=== PATIENT | female | born 2000 | race Caucasian/White ===

== ENCOUNTER 2021-03-09 16:02 | Emergency (ER) | payer OTHER, SELFPAY ==
--- NOTE | ~2021-03-09 | XR_ITS ---
EXAMINATION: XR CHEST CLINICAL INFORMATION: Chest pain COMPARISON: None TECHNIQUE: Frontal view of the chest was obtained. FINDINGS: No significant abnormality is noted involving the heart, lungs, mediastinum, bony thorax or soft tissues. XR/XR chest 1V IMPRESSION: Unremarkable examination.
[2021-03-09 16:11] VITALS: BP 116/58; PULSE 66; RESP 17; TEMP 36.6; O2SAT 99; BMI 25.7
--- NOTE | 2021-03-09 16:18 | ECG_ITS ---
Test Reason : CHEST PAIN Blood Pressure : / mmHG Vent. Rate : 064 BPM Atrial Rate : 064 BPM P-R Int : 160 ms QRS Dur : 086 ms QT Int : 394 ms P-R-T Axes : -06 -15 -21 degrees QTc Int : 406 ms Normal sinus rhythm with sinus arrhythmia Moderate voltage criteria for LVH, may be normal variant Inferior T wave inversions - consider ischemia Abnormal ECG No previous ECGs available Referred By: Generic ED Physician Electronically Signed By:Emmanuel Palma
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
[2021-03-09 18:32] LABS: MANUAL DIFF FLAG NO
[2021-03-09 18:36] LABS: Basophils Percent Auto 0.1 % (0-2); Eosinophils Absolute Auto 0.1 X10*3/uL (0.0-0.4); Eosinophils Percent Auto 1.6 % (0-4); Hematocrit 40.4 % (37-47); Hemoglobin 13.8 g/dl (12.0-16.0); Imm Gran Abs Auto 0.02 X10*3/uL (0.00-0.03); Imm Gran Pct Auto 0.3 % (0.0-0.4); Lymphocytes Absolute Auto 2.5 X10*3/uL (1.2-4.9); Lymphocytes Percent Auto 31.4 % (20-40); Mean Corpuscular HGB Conc 34.2 g/dl (31.0-35.0); Mean Corpuscular Hemoglobin 31.4 pg (27.0-33.0); Mean Corpuscular Volume 91.8 fL (80-98); Mean Platelet Volume 9.7 fL (9.4-12.3); Monocytes Absolute Auto 0.9 X10*3/uL (0.1-1.2); Monocytes Percent Auto 11.1 % (2-11); Neutrophils Absolute Auto 4.4 X10*3/uL (2.0-8.3); Neutrophils Percent Auto 55.5 % (45-73); Platelet Count 266 X10*3/uL (160-400); Red Cell Distribution Width 12.1 % (11.0-16.0); White Blood Count 7.9 X10*3/uL (4.8-10.8)
[2021-03-09 19:00] LABS: Alanine Aminotransferase 11 U/L (0-31); Albumin Level 4.3 g/dL (3.5-5.0); Alkaline Phosphatase 83 U/L (39-117); Anion Gap 11 (12-20); Aspartate Amino Transferase 13 U/L (5-31); Bilirubin Total 0.5 mg/dL (0.0-1.0); Blood Urea Nitrogen 16 mg/dL (9-16); Calcium 9.2 mg/dL (8.4-10.2); Carbon Dioxide 24 mmol/L (22-29); Chloride 110 mmol/L (96-108); Creatinine Clr Calc Pharmacy 115.5; Estimated Glomerular Filt Rate > 60; Glucose Random 73 mg/dL (60-115); Potassium 3.8 mmol/L (3.3-5.1); Sodium 141 mmol/L (135-145); Total Protein 7.6 g/dL (6.5-8.0)
[2021-03-09 19:03] LABS: Troponin-I High Sensitivity < 3.5 ng/L (<3.5-17.0)
[2021-03-09 19:09] VITALS: BP 103/60; PULSE 51; RESP 18; O2SAT 100
== END 2021-03-09 19:48 | disposition home or self-care (01) ==
PROVIDERS: Nurse Practitioner Primary Care; Emergency Provider Internal Medicine
DX: M94.0 Chondrocostal junction syndrome [Tietze] (principal); N64.4 Mastodynia
CPT/HCPCS: 36415; 71045; 80053; 84484; 85025; 93005; 99283; 99284

== ENCOUNTER 2021-03-29 09:08 | Emergency (ER) | payer OTHER, SELFPAY ==
--- NOTE | ~2021-03-29 | XR_ITS ---
EXAMINATION: XR HAND, LEFT XR KNEE, LEFT CLINICAL INFORMATION: Pain following trauma. COMPARISON: None TECHNIQUE: AP, oblique, and lateral views of the left hand. AP, bilateral oblique and lateral views of the left knee. FINDINGS: Left Hand: Oblique, mildly displaced fracture through the 4th metacarpal. Cortical step-off measures up to 0.3 cm. No additional fracture. No dislocation. No joint space narrowing or marginal osteophytes. No osseous erosion. Left Knee: No acute fracture or dislocation. No joint space narrowing or marginal osteophytes. No osseous erosion. No abnormal soft tissue calcification. No significant joint effusion. XR/XR hand LT min 3V IMPRESSION: Left Hand: Oblique, mildly displaced fracture of the 4th metacarpal. Left Knee: Unremarkable examination.
--- NOTE | ~2021-03-29 | XR_ITS ---
EXAMINATION: XR HAND, LEFT XR KNEE, LEFT CLINICAL INFORMATION: Pain following trauma. COMPARISON: None TECHNIQUE: AP, oblique, and lateral views of the left hand. AP, bilateral oblique and lateral views of the left knee. FINDINGS: Left Hand: Oblique, mildly displaced fracture through the 4th metacarpal. Cortical step-off measures up to 0.3 cm. No additional fracture. No dislocation. No joint space narrowing or marginal osteophytes. No osseous erosion. Left Knee: No acute fracture or dislocation. No joint space narrowing or marginal osteophytes. No osseous erosion. No abnormal soft tissue calcification. No significant joint effusion. XR/XR knee LT 4V IMPRESSION: Left Hand: Oblique, mildly displaced fracture of the 4th metacarpal. Left Knee: Unremarkable examination.
[2021-03-29 09:16] VITALS: BP 114/76; BP 134/76; PULSE 88; PULSE 89; RESP 18; TEMP 36.9; O2SAT 100; O2SAT 99; BMI 25.7
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
[2021-03-29] MEDS: Ibuprofen 600 MG TABLET PO (10:14)
== END 2021-03-29 10:52 | disposition home or self-care (01) ==
PROVIDERS: Emergency Provider Emergency Medicine
DX: S62.305A Unspecified fracture of fourth metacarpal bone, left hand, initial encounter for closed fracture (principal); M25.562 Pain in left knee; V89.2XXA Person injured in unspecified motor-vehicle accident, traffic, initial encounter; Y93.9 Activity, unspecified; Y92.410 Unspecified street and highway as the place of occurrence of the external cause; Y99.9 Unspecified external cause status
CPT/HCPCS: 29125; 73130; 73564; 99283; 99284

== ENCOUNTER 2021-04-05 08:03 | Outpatient (REF) | payer OTHER, SELFPAY ==
--- NOTE | ~2021-04-05 | XR_ITS ---
EXAMINATION: XR HAND, LEFT CLINICAL INFORMATION: Left hand pain. COMPARISON: 03/29/2021 TECHNIQUE: 4 views of the left hand. FINDINGS: There is again noted to be an oblique mildly displaced fracture shaft of the left 4th metacarpal with displacement of approximately 3 mm and no significant angulation. Remainder of the left hand appears unremarkable. No periosteal new bone formation is seen and fracture line is still evident. XR/XR hand LT min 3V IMPRESSION: No significant change in appearance of the oblique fracture of the [id number] metacarpal.
== END 2021-04-05 08:04 | disposition home or self-care (01) ==
LOC: HO.HOSX 08:03
PROVIDERS: Visit Provider Physician Assistant
DX: S62.328A Displaced fracture of shaft of other metacarpal bone, initial encounter for closed fracture (principal)
CPT/HCPCS: 29085; 73130; 99202

== ENCOUNTER 2021-04-12 05:30 | Outpatient (REF) | payer OTHER, SELFPAY ==
--- NOTE | ~2021-04-12 | XR_ITS ---
EXAMINATION: XR HAND, LEFT CLINICAL INFORMATION: Pain in hand. COMPARISON: Left hand March 29, 2021, April 05, 2021 TECHNIQUE: 3 views. of the left hand. FINDINGS: There is no oblique slightly displaced fracture through the midshaft of the fourth metacarpal. No substantial change in positioning of the fracture fragments since the prior study of April 05, 2021. Fracture line remains radiolucent. No ossified callus around the fracture. XR/XR hand LT min 3V IMPRESSION: Oblique fracture midshaft of fourth metacarpal. No change in appearance of fracture since prior study April 05, 2021.
== END 2021-04-12 05:31 | disposition home or self-care (01) ==
LOC: HO.HOSX 05:30
PROVIDERS: Visit Provider Physician Assistant
DX: S62.328D Displaced fracture of shaft of other metacarpal bone, subsequent encounter for fracture with routine healing (principal)
CPT/HCPCS: 29085; 73130; 99212

== ENCOUNTER 2021-05-07 12:48 | Emergency (ER) | payer OTHER, SELFPAY ==
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
[2021-05-07 15:10] VITALS: BP 102/42; PULSE 57; RESP 16; TEMP 36.7; O2SAT 99; BMI 24.7
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
[2021-05-07 18:06] VITALS: BP 102/62; PULSE 58; RESP 16; TEMP 36.6; O2SAT 100
--- NOTE | 2021-05-07 20:13 | PC.NURSE ---
PA at bedside discussing results and plan for discharge.
== END 2021-05-07 20:26 | disposition home or self-care (01) ==
PROVIDERS: Emergency Provider Emergency Medicine
DX: S06.0X0A Concussion without loss of consciousness, initial encounter (principal); S16.1XXA Strain of muscle, fascia and tendon at neck level, initial encounter; G44.309 Post-traumatic headache, unspecified, not intractable; V43.52XA Car driver injured in collision with other type car in traffic accident, initial encounter; Y93.9 Activity, unspecified; Y92.410 Unspecified street and highway as the place of occurrence of the external cause; Y99.9 Unspecified external cause status; Z79.899 Other long term (current) drug therapy
CPT/HCPCS: 70450; 72125; 99284

== ENCOUNTER 2021-05-10 06:36 | Outpatient (REF) | payer OTHER, SELFPAY ==
--- NOTE | ~2021-05-10 | XR_ITS ---
EXAMINATION: XR HAND, LEFT CLINICAL INFORMATION: Left hand pain COMPARISON: 04/12/2021nd studies dating back to 03/29/2021 TECHNIQUE: PA, lateral, and oblique views of the left hand. FINDINGS: There is again noted to be an oblique fracture through the midshaft of the 4th metacarpal with stable mild displacement of fracture fragments. Fracture does not extend into either joint space. Fracture line is still evident. There appears be a small amount of bony density through the linear mid fracture line consistent with continued healing. XR/XR hand LT min 3V IMPRESSION: Stable alignment of minimally displaced left 4th metacarpal fracture with fracture line still being evident but some evidence of interval healing.
== END 2021-05-10 06:37 | disposition home or self-care (01) ==
LOC: HO.HOSX 06:36
PROVIDERS: Visit Provider Physician Assistant
DX: S62.325D Displaced fracture of shaft of fourth metacarpal bone, left hand, subsequent encounter for fracture with routine healing (principal)
CPT/HCPCS: 73130

== ENCOUNTER 2021-06-21 07:38 | Outpatient (REF) | payer OTHER, SELFPAY ==
--- NOTE | ~2021-06-21 | XR_ITS ---
EXAMINATION: XR HAND, LEFT CLINICAL INFORMATION: Follow-up fracture COMPARISON: Previous x-ray most recent 05/10/2021 TECHNIQUE: PA, lateral, and oblique views of the left fourth finger FINDINGS: There is an oblique fracture of the fourth metacarpal bone. Fracture line is still seen. There is some evidence of bony callus formation along the distal volar portion of the fracture. Alignment is unchanged. No other fracture is seen. Joint spaces and soft tissues are normal. XR/XR hand LT min 3V IMPRESSION: Healing left fourth metacarpal shaft fracture.
== END 2021-06-21 07:39 | disposition home or self-care (01) ==
LOC: HO.HOSX 07:38
PROVIDERS: Visit Provider Physician Assistant
DX: S62.325D Displaced fracture of shaft of fourth metacarpal bone, left hand, subsequent encounter for fracture with routine healing (principal)
CPT/HCPCS: 73130

== ENCOUNTER 2022-08-17 15:40 | Emergency (ER) | payer OTHER, SELFPAY ==
--- NOTE | ~2022-08-17 | XR_ITS ---
EXAMINATION: XR hand LT 2V CLINICAL INFORMATION: Reason for Exam crush injury COMPARISON: hand radiographs 06/21/2021. TECHNIQUE: AP, lateral, and oblique views of the hand FINDINGS: No acute fracture or dislocation. Remote healed fracture of the fourth metacarpal. Joint spaces are maintained without significant degenerative change. No soft tissue abnormality. XR/XR hand LT 2V IMPRESSION: No acute osseous abnormality.
--- NOTE | 2022-08-17 16:22 | ED_ITS ---
HPI - General Adult General Chief complaint: General Medical Stated complaint: L finger rechecked Time Seen by Provider: 08/17/22 16:22 Source: patient Mode of arrival: ambulatory Limitations: no limitations History of Present Illness HPI narrative: 22 yo female here with complaints of crush injury to left hand, right dominant. No numbness, tingling, weakness. Related Data Previous Rx's Medication Instructions Recorded ibuprofen 600 mg tablet 600 mg PO TID PRN pain #30 tabs 03/29/21 tramadol 50 mg tablet 50 mg PO Q8H PRN pain #14 tabs 03/29/21 Allergies Allergy/AdvReac Type Severity Reaction Status Date / Time fluconazole [From Diflucan] Allergy Intermediate Swelling Verified 08/17/22 16:23 Review of Systems Review of Systems: Yes all other systems are reviewed and are negative Constitutional: Constitutional: Reports no additional constitutional complaints, Denies body ache(s), Denies chills, Denies fever(s), Denies headache(s) and Denies weakness Eyes: Eyes: Reports no additional eye complaints and Denies change in vision ENT: Reports system reviewed and no additional complaints, except as documented, Denies dizziness, Denies headache(s), Denies nasal congestion, Denies nasal discharge and Denies neck pain Cardiovascular: Cardiovascular: Reports no additional cardiovascular complaints, Denies chest pain, Denies leg edema and Denies dyspnea Respiratory: Respiratory: Reports no additional respiratory complaints, Denies cough and Denies dyspnea Gastrointestinal: Gastrointestinal: Reports no additional gastrointestinal complaints, Denies abdominal pain, Denies diarrhea, Denies nausea and Denies vomiting Genitourinary: Genitourinary: Reports no additional female genitourinary complaints and Denies urinary incontinence Musculoskeletal: Musculoskeletal: Reports no additional musculoskeletal complaints, Denies back pain, Denies arthralgias, Denies joint swelling, Denies neck pain, Denies numbness and Denies tingling Integumentary/Breasts: Skin/Breast: Reports system reviewed and no additional complaints, except as docu and Denies rash Neurologic: Reports system reviewed and no additional complaints, except as documented, Denies dizziness, Denies headache(s), Denies numbness, Denies tingling and Denies weakness [facility] Past Medical History Attestation statement: The following information was validated with the patient. 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 [employer] Physical Exam ED Vital Signs: Vital Signs - 24 hr 08/17/22 16:23 Temperature 98.2 F Pulse Rate 56 Respiratory Rate 16 Blood Pressure 109/44 L Pulse Oximetry 99 Oxygen Delivery Method Room Air BMI result Body Mass Index 23.1 Const General: cooperative, healthy appearing and comfortable Orientation/consciousness: patient oriented x3 Limitations: no limitations HENMT Head: Yes normal to inspection Ears: hearing grossly normal bilaterally Eyes General: appearance normal, both eyes and all related structures Pupils: Equal, round and reactive pupils present Neck Neck: Yes normal visual inspection Chest Chest palpation & inspection: normal inspection of the chest Resp Effort & Inspection: normal respiratory effort Cardio Peripheral pulses: Peripheral pulses 2+ throughout Back/Spine/Pelvis Thoracic/Lumbar Spine: thoracic and lumbar spine normal to inspection Skin General skin exam: no rashes or lesions noted Neuro General: patient oriented x3 and moves all extremities Cranial nerves: Yes Equal, round and reactive pupils present Cognition (Neuro): normal cognition Gait exam (Neuro): Normal gait present Extrem Other: Patient with tenderness over the dorsal base of the left middle finger. Full range of motion. Neurovascular intact distally. Course Course Course Narrative: X-ray shows no fracture. Likely contusion. Recommended heat or ice, gentle stretching, Motrin or Tylenol for pain. Reviewed worrisome signs and symptoms of when to return to the emergency room. Comfortable discharge home. Medical Decision Making MDM Narrative Medical decision making narrative: 22 yo female right hand dominant here with left hand pain after crush injury which occurred just prior to arrival. Patient with previous fracture to the hand. Patient with some pain over the base of the left middle finger. Will check x-rays. Consider fracture, contusion Medical Records Medical records reviewed: Yes I reviewed the patient's medical records. Lab Data Lab results reviewed: Yes I reviewed the patient's lab results. Imaging Data hand x-ray: Attestation: I personally reviewed and interpreted this imaging study as follows: Radiologist's impression: [address] [address] XRay Report Signed Patient: Gail Davidson MR#: [id number] : 2000 Acct:[id number] Age/Sex: 22 / F ADM Date: 08/17/22 Loc: HO.ED Attending Dr: Ordering Physician: Jessica Be NP Date of Service: 08/17/22 Procedure(s): XR hand LT 2V Accession Number(s): [id number] cc: Jessica Be NP~ EXAMINATION: XR hand LT 2V CLINICAL INFORMATION: Reason for Exam crush injury COMPARISON: hand radiographs 06/21/2021. TECHNIQUE: AP, lateral, and oblique views of the hand FINDINGS: No acute fracture or dislocation. Remote healed fracture of the fourth metacarpal. Joint spaces are maintained without significant degenerative change. No soft tissue abnormality. XR/XR hand LT 2V IMPRESSION: ? No acute osseous abnormality. Discharge Plan Discharge Clinical Impression: Contusion of hand, left Patient Disposition: Home, Self-Care Instructions: Contusion in Adults (ED) Additional Instructions: X-ray show no fracture Motrin or Tylenol the pain Ice to the area Prescriptions: No Action tramadol 50 mg tablet 50 mg PO Q8H PRN (Reason: pain) Qty: 14 0RF ibuprofen 600 mg tablet 600 mg PO TID PRN (Reason: pain) Qty: 30 0RF Referrals: Physician,None [Primary Care Provider] -
[2022-08-17 16:23] VITALS: BP 109/44; PULSE 56; RESP 16; TEMP 36.8; O2SAT 99; BMI 23.1
== END 2022-08-17 18:27 | disposition home or self-care (01) ==
PROVIDERS: Emergency Provider Emergency Medicine
DX: S60.222A Contusion of left hand, initial encounter (principal); W23.0XXA Caught, crushed, jammed, or pinched between moving objects, initial encounter; Y93.9 Activity, unspecified; Y92.9 Unspecified place or not applicable; Y99.9 Unspecified external cause status
CPT/HCPCS: 73120; 99282; 99283

== ENCOUNTER 2022-09-23 14:06 | Emergency (ER) | payer OTHER, SELFPAY ==
[2022-09-23 14:09] VITALS: BP 118/60; PULSE 71; RESP 18; TEMP 36.7; O2SAT 99; BMI 24.7
--- NOTE | 2022-09-23 14:09 | ED.LOWEXIN ---
HPI - Extremity Injury (Lower) General Chief Complaint: Back Pain/Injury <FREDDY Parra Last Filed: 09/23/22 14:51> Stated Complaint: Pins in needles in both legs <FREDDY Parra Last Filed: 09/23/22 14:51> Time Seen by Provider: 09/23/22 14:24 <FREDDY Parra Last Filed: 09/23/22 14:51> Source: patient <FREDDY Bravo Last Filed: 09/23/22 15:01> Mode of arrival: ambulatory <FREDDY Bravo Last Filed: 09/23/22 15:01> Limitations: no limitations <FREDDY Bravo Last Filed: 09/23/22 15:01> History of Present Illness HPI Narrative: Patient is a 22 year old assigned female at with no reported medical history presenting to the emergency department today with low back pain and numbness/tingling of the lower legs. Patient states that a couple days ago she picked up one of her kids and hurt her low back. Patient states that the back pain mostly resolved but starting yesterday she began to have bilateral lower leg numbness and tingling. Patient denies any dizziness, lightheadedness, abdominal pain, nausea, vomiting, fever, chills, blurry vision, double vision, loss of vision, chest pain, difficulty breathing, shortness of breath, night sweats, pain with urination, increased urinary frequency, increased urinary urgency, blood in her urine or stool, syncope or a near syncopal episode, bowel incontinence, bladder incontinence, bowel retention, bladder retention, or any other complaints at this time. <FREDDY Bravo Last Filed: 09/23/22 15:01> Onset (ago): day(s) <FREDDY Bravo Last Filed: 09/23/22 15:01> Place: home <FREDDY Bravo Last Filed: 09/23/22 15:01> Severity: mild <FREDDY Bravo Last Filed: 09/23/22 15:01> Severity scale (1-10): 1 <FREDDY Bravo Last Filed: 09/23/22 15:01> Relieving factors: nothing <FREDDY Bravo Last Filed: 09/23/22 15:01> Exacerbating factors: nothing <FREDDY Bravo Last Filed: 09/23/22 15:01> Other symptoms: none <FREDDY Bravo Last Filed: 09/23/22 15:01> Related Data Home Medications: Previous Rx's Medication Instructions Recorded ibuprofen 600 mg tablet 600 mg PO TID PRN pain #30 tabs 03/29/21 tramadol 50 mg tablet 50 mg PO Q8H PRN pain #14 tabs 03/29/21 <FREDDY Parra Last Filed: 09/23/22 14:51> Allergies/Adverse Reactions: Allergies Allergy/AdvReac Type Severity Reaction Status Date / Time fluconazole [From Diflucan] Allergy Intermediate Swelling Verified 08/17/22 16:23 <FREDDY Parra Last Filed: 09/23/22 14:51> Review of Systems Constitutional: Constitutional: Reports no additional constitutional complaints, Denies chills, Denies fever(s) and Denies night sweats <FREDDY Bravo Last Filed: 09/23/22 15:01> Eyes: Eyes: Reports no additional eye complaints, Denies blurry vision, Denies change in vision, Denies diplopia, Denies eye discharge, Denies loss of vision and Denies eye pain <FREDDY Bravo Last Filed: 09/23/22 15:01> ENT: Denies dizziness <FREDDY Bravo Last Filed: 09/23/22 15:01> Cardiovascular: Cardiovascular: Reports no additional cardiovascular complaints, Denies chest pain, Denies lightheadedness, Denies Loss of Consciousness and Denies dyspnea <FREDDY Bravo Last Filed: 09/23/22 15:01> Respiratory: Respiratory: Reports no additional respiratory complaints and Denies dyspnea <FREDDY Bravo Last Filed: 09/23/22 15:01> Gastrointestinal: Gastrointestinal: Reports no additional gastrointestinal complaints, Denies abdominal pain, Denies melena, Denies hematochezia, Denies change in bowel habits and Denies change in stool character <FREDDY Bravo Last Filed: 09/23/22 15:01> Genitourinary: Genitourinary: Denies hematuria, Denies urinary frequency, Denies dysuria, Denies urinary incontinence, Denies urinary hesitancy and Denies urinary urgency <FREDDY Bravo - Last Filed: 09/23/22 15:01> Musculoskeletal: Musculoskeletal: Reports no additional musculoskeletal complaints and Reports back pain <FREDDY Bravo - Last Filed: 09/23/22 15:01> Neurologic: Denies dizziness and Denies loss of vision <FREDDY Bravo - Last Filed: 09/23/22 15:01> Comments: numbness / tingling of the bilateral lower legs <FREDDY Bravo - Last Filed: 09/23/22 15:01> Psychiatric: Psychiatric: Reports no additional psychiatric complaints <FREDDY Bravo - Last Filed: 09/23/22 15:01> Endocrine: Endocrine: Reports no additional endocrine complaints <FREDDY Bravo - Last Filed: 09/23/22 15:01> Hematologic/Lymphatic: Hematologic/Lymphatic: Reports no additional hematologic/lymphatic complaints <FREDDY Bravo - Last Filed: 09/23/22 15:01> Allergic/Immunologic: Allergic/Immunologic: Reports no additional allergic/immunologic complaints <FREDDY Bravo - Last Filed: 09/23/22 15:01> [facility] Past Medical History Attestation statement: The following information was validated with the patient. 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 <FREDDY Parra - Last Filed: 09/23/22 14:51> Physical Exam Vital Signs: Vital Signs: Last Vital Signs Temp 98.1 F 09/23/22 14:09 Pulse 71 09/23/22 14:09 Resp 18 09/23/22 14:09 BP 118/60 09/23/22 14:09 Pulse Ox 99 09/23/22 14:09 O2 Del Method 09/23/22 14:09 BMI result Body Mass Index 24.7 <FREDDY Parra - Last Filed: 09/23/22 14:51> Vital Signs: Last Vital Signs Temp 98.1 F 09/23/22 14:09 Pulse 71 09/23/22 14:09 Resp 18 09/23/22 14:09 BP 118/60 09/23/22 14:09 Pulse Ox 99 09/23/22 14:09 O2 Del Method 09/23/22 14:09 BMI result Body Mass Index 24.7 <FREDDY Bravo - Last Filed: 09/23/22 15:01> Const: General: cooperative, no acute distress, alert and awake <FREDDY Bravo - Last Filed: 09/23/22 15:01> Nutritional Appearance: well nourished <FREDDY Bravo - Last Filed: 09/23/22 15:01> Orientation/consciousness: patient oriented x3 <FREDDY Bravo - Last Filed: 09/23/22 15:01> Limitations: no limitations <FREDDY Bravo - Last Filed: 09/23/22 15:01> HEENT: Head: Yes normal to inspection and Yes atraumatic <FREDDY Bravo Last Filed: 09/23/22 15:01> Ears: hearing grossly normal bilaterally and external ears normal <FREDDY Bravo - Last Filed: 09/23/22 15:01> General nose exam: Normal external nose present, no nasal discharge noted and no epistaxis <FREDDY Bravo - Last Filed: 09/23/22 15:01> Face and sinus: Yes normal facial exam, No abrasion and No laceration <FREDDY Bravo - Last Filed: 09/23/22 15:01> Mouth: Normal oral and palatal mucosa present, no drooling and no muffled voice <FREDDY Bravo - Last Filed: 09/23/22 15:01> Eyes: General: appearance normal, both eyes and all related structures <Sandi Flor ND - Last Filed: 09/23/22 15:01> Periorbital: periorbital findings normal <Sandi Flor ND - Last Filed: 09/23/22 15:01> Eyelids: Yes eyelids normal <Sandi Flor ND - Last Filed: 09/23/22 15:01> Conjunctivae: conjunctivae normal <Sandi Flor ND - Last Filed: 09/23/22 15:01> Pupils: Equal, round and reactive pupils present <Sandi Flor ND - Last Filed: 09/23/22 15:01> EOM: EOMs intact bilaterally <Sandi Flor ND - Last Filed: 09/23/22 15:01> Neck: Neck: Yes normal visual inspection, Yes full ROM and Yes no lymphadenopathy <Sandi Flor ND - Last Filed: 09/23/22 15:01> Chest: Chest palpation & inspection: normal inspection of the chest <Sandi Flor ND - Last Filed: 09/23/22 15:01> Resp: Effort & Inspection: normal respiratory effort and able to speak in complete sentences <Sandi Flor ND - Last Filed: 09/23/22 15:01> Auscultation: clear to auscultation bilaterally <Sandi Flor ND - Last Filed: 09/23/22 15:01> Cardio: Rate: regular rate <Sandi Flor ND - Last Filed: 09/23/22 15:01> Rhythm: regular rhythm <Sandi Flor ND - Last Filed: 09/23/22 15:01> GI: Inspection: Yes normal to inspection <Sandi Flor [facility] Last Filed: 09/23/22 15:01> Palpation (GI): Soft to palpation, not firm, nontender, no guarding and not rigid <Sandi Flor ND - Last Filed: 09/23/22 15:01> : General: Yes no CVA tenderness <Sandi Flor ND - Last Filed: 09/23/22 15:01> Back/Spine/Pelvis: Back: no CVA tenderness <Sandi Flor ND - Last Filed: 09/23/22 15:01> Cervical Spine: normal cervical lordosis and cervical ROM normal <Sandigennaro Kilgoregraham ND - Last Filed: 09/23/22 15:01> Thoracic/Lumbar Spine: thoracic and lumbar spine normal to inspection and thoraco-lumbar ROM normal <Sandi Kilgoregraham ND - Last Filed: 09/23/22 15:01> Pelvis: no pain with anterior-posterior compression <Sandi Basia ND - Last Filed: 09/23/22 15:01> Neuro: General: patient oriented x3 and moves all extremities <Sandigennaro Kilgoregraham ND - Last Filed: 09/23/22 15:01> Cranial nerves: Yes Equal, round and reactive pupils present <Sandi Basia ND - Last Filed: 09/23/22 15:01> Cognition (Neuro): normal cognition <Sandigennaro Kilgoregraham ND - Last Filed: 09/23/22 15:01> Motor exam (neuro): 5/5 motor strength present throughout <Sandi Basia ND - Last Filed: 09/23/22 15:01> Sensory Exam: Normal double simultaneous stimulation for sensation <Sandi Kilgoregraham ND - Last Filed: 09/23/22 15:01> Coordination: [id number] test normal <Sandi Flor, ND - Last Filed: 09/23/22 15:01> Extrem: General: Yes normal to inspection, Yes full ROM and Yes capillary refill normal <Sandi Kilgoregraham ND - Last Filed: 09/23/22 15:01> Psych: Appearance: grossly normal <Sandi Flor ND - Last Filed: 09/23/22 15:01> Mental Status: mental status grossly normal <Sandigennaro Kilgoregraham ND - Last Filed: 09/23/22 15:01> Affect: normal affect <Sandi Flor ND - Last Filed: 09/23/22 15:01> Attitude: cooperative <Sandi Flor ND - Last Filed: 09/23/22 15:01> Thought process: Normal thought process present <FREDDY Bravo - Last Filed: 09/23/22 15:01> Thought content: Normal thought content present <Sandi Flor ND - Last Filed: 09/23/22 15:01> Insight: Good insight present (Psych) <Sandi Flor PA - Last Filed: 09/23/22 15:01> NIH Stroke Scale Internal: Initial- Upon Arrival <Sandi Flor PA - Last Filed: 09/23/22 15:01> Time: 14:09 <Sandi Flor PA - Last Filed: 09/23/22 15:01> Level of Consciousness: Alert <Sandi Flor PA - Last Filed: 09/23/22 15:01> Level of Consciousness Questions: Answers both questions correctly <Sandi Flor PA - Last Filed: 09/23/22 15:01> Level of Consciousness Commands: Performs both tasks correctly <Sandi Flor PA - Last Filed: 09/23/22 15:01> Best Gaze: Normal <Sandi Flor PA - Last Filed: 09/23/22 15:01> Visual: No visual loss <Sandi Flor PA - Last Filed: 09/23/22 15:01> Facial Palsy: Normal <Sandi Flor PA - Last Filed: 09/23/22 15:01> Motor Arm (Right): No drift <Sandi Flor PA - Last Filed: 09/23/22 15:01> Motor Arm (Left): No drift <Sandi Flor PA - Last Filed: 09/23/22 15:01> Motor Leg (Right): No drift <Sandi Flor PA - Last Filed: 09/23/22 15:01> Motor Leg (Left): No drift <Sandi Flor PA - Last Filed: 09/23/22 15:01> Limb Ataxia: Absent <Sandi Flor PA - Last Filed: 09/23/22 15:01> Sensory: Normal <Sandi Flor PA - Last Filed: 09/23/22 15:01> Best Language: No aphasia <Sandi Flor PA - Last Filed: 09/23/22 15:01> Dysarthia: Normal <Sandi Flor PA - Last Filed: 09/23/22 15:01> Extinction and Inattention: No abnormality <Sandi Flor PA - Last Filed: 09/23/22 15:01> Score: 0 <Sandi Flor PA - Last Filed: 09/23/22 15:01> Course Course Course Narrative: RMSterling-- 22yo F c/o sudden onset back pain s/p picking up her oldest child followed by pins and needles in bilateral lower extremities. Reports she cannot feel her rectum. Denies urinary incontinence or retention. Has tried elevation & NSAIDs w/o relief Patient will need full eval by main ED provider <FREDDY Parra - Last Filed: 09/23/22 14:51> Medications Administered Discontinued Medications Generic Name Dose Route Start Last Admin Trade Name Freq PRN Reason Stop Dose Admin Ketorolac Tromethamine 15 mg 09/23/22 14:36 09/23/22 14:46 Ketorolac Tromethamine 15 Mg/Ml Vial IM 09/23/22 14:37 15 mg ONCE ONE Administration <FREDDY Parra - Last Filed: 09/23/22 14:51> Medications Administered Discontinued Medications Generic Name Dose Route Start Last Admin Trade Name Freq PRN Reason Stop Dose Admin Ketorolac Tromethamine 15 mg 09/23/22 14:36 09/23/22 14:46 Ketorolac Tromethamine 15 Mg/Ml Vial IM 09/23/22 14:37 15 mg ONCE ONE Administration <FREDDY Bravo Last Filed: 09/23/22 15:01> Medical Decision Making Medical Decision Making MDM Narrative: Patient is a 22 year old assigned female at with no reported medical history presenting to the emergency department today with low back pain and intermittent bilateral lower leg numbness / tingling. Patient's physical exam was unremarkable. I explained my physical exam findings to the patient. I answered all questions asked by the patient. Patient received IM Toradol which she stated helped her symptoms significantly. I stressed the importance of the patient taking her medication as prescribed. I stressed the importance of the patient following up with her primary care provider and if pain persists >1 week, a user support specialist. I stressed the importance of the patient returning to the emergency department immediately if her symptoms were to worsen or if she were to develop any dizziness, shortness of breath, difficulty breathing, chest pain, blurry vision, loss of vision, nausea, vomiting, abdominal pain, fever, chills, back pain, or any other complaints. Patient verbalized agreement and understanding with this treatment plan and discharge. <FREDDY Bravo - Last Filed: 09/23/22 15:01> Differential Diagnosis Differential Diagnoses: The differential diagnosis associated with the presentation includes <FREDDY Bravo Last Filed: 09/23/22 15:01> low back pain, mechanical back pain, disc herniation <FREDDY Bravo Last Filed: 09/23/22 15:01> Discharge Plan Discharge Clinical Impression: Back pain <FREDDY Parra Last Filed: 09/23/22 14:51> Patient Disposition: Home, Self-Care <FREDDY Parra Last Filed: 09/23/22 14:51> Instructions: Back Pain (ED) <FREDDY Parra Last Filed: 09/23/22 14:51> Additional Instructions: Follow up with your primary care provider. If pain persists >1 week, follow up with a user support specialist. Return to the emergency department immediately if your symptoms worsen or if you develop any dizziness, shortness of breath, difficulty breathing, chest pain, blurry vision, loss of vision, nausea, vomiting, abdominal pain, fever, chills, back pain, or any other complaints. <FREDDY Parra Last Filed: 09/23/22 14:51> Prescriptions: No Action tramadol 50 mg tablet 50 mg PO Q8H PRN (Reason: pain) Qty: 14 0RF ibuprofen 600 mg tablet 600 mg PO TID PRN (Reason: pain) Qty: 30 0RF <FREDDY Parra Last Filed: 09/23/22 14:51> Referrals: [facility] [place] [facility] [Provider Group] (Call to establish and follow up with a primary care provider. If you already have a primary care provider, please follow up with them. ) [facility] [place] [facility] [[facility]] (Call to establish and follow up with a primary care provider. If you already have a primary care provider, please follow up with them. ) [facility] [place] [facility] [Provider Group] (Call to establish and follow up with a primary care provider. If you already have a primary care provider, please follow up with them. ) [facility] [Provider Group] (Call to establish and follow up with a user support specialist. ) <FREDDY Parra Last Filed: 09/23/22 14:51> Stand Alone Forms: Work/School Release <FREDDY Parra - Last Filed: 09/23/22 14:51> Interventions: ED Discharge Assessment Last Done: 09/23/22 14:51 <FREDDY Parra - Last Filed: 09/23/22 14:51> Discharge Date/Time: 09/23/22 14:54 <FREDDY Parra - Last Filed: 09/23/22 14:51> Print Language: [place] <FREDDY Parra - Last Filed: 09/23/22 14:51>
[2022-09-23] MEDS: Ketorolac Tromethamine 15 MG/ML VIAL IM (14:46)
== END 2022-09-23 14:54 | disposition home or self-care (01) ==
LOC: HO.ED 14:48
PROVIDERS: Emergency Provider Student in an Organized Health Care Education/Training Program
DX: M54.50 Low back pain, unspecified (principal)
CPT/HCPCS: 96372; 99283; 99284; J1885

== ENCOUNTER 2022-10-01 08:52 | Emergency (ER) | payer OTHER, SELFPAY ==
--- NOTE | ~2022-10-01 | MR_ITS ---
EXAMINATION: MR LUMBAR SPINE WITHOUT CONTRAST CLINICAL INFORMATION: Low back pain. Numbness. Incontinence. Decreased rectal tone. COMPARISON: None TECHNIQUE: MRI of the lumbar spine was obtained using routine sequences without contrast. FINDINGS: The lumbar vertebral bodies maintain normal heights and alignment. No disc height loss is seen. The bone marrow signal appears normal. The distal spinal cord appears normal. The conus medullaris terminates normally at the L1 level. There is no disc herniation. No spinal canal or neural foraminal stenosis is seen. The extraspinal soft tissues are unremarkable. MR/MR lumbar spine wo con IMPRESSION: No abnormality identified. No disc herniation, spinal canal stenosis, or nerve root compression.
[2022-10-01 09:30] VITALS: BP 99/51; PULSE 65; RESP 14; TEMP 36.4; O2SAT 100; BMI 23.3
--- NOTE | 2022-10-01 11:23 | ED.GENADULT ---
HPI - General Adult General Chief complaint: General Medical Stated complaint: Numbness in feet Time Seen by Provider: 10/01/22 10:15 Source: patient Mode of arrival: ambulatory History of Present Illness HPI narrative: 22-year-old female with no significant past medical history presenting to the ED complaining of acute low back pain radiating down bilateral lower extremities with associated numbness and tingling x 1 week s/p picking a child. Denies direct injury/trauma or fall, patient was evaluated in our ED last week for similar symptoms. Reports intermittent urinary incontinence. Has been taking previously prescribed medications without relief. Denies fever, chills, history of IVDA, abdominal pain, urinary retention Onset (ago): week(s) Related Data Previous Rx's Medication Instructions Recorded ibuprofen 600 mg tablet 600 mg PO TID PRN pain #30 tabs 03/29/21 tramadol 50 mg tablet 50 mg PO Q8H PRN pain #14 tabs 03/29/21 cyclobenzaprine 5 mg tablet 5 mg PO TID PRN muscle spasm 7 09/23/22 days #21 tabs Allergies Allergy/AdvReac Type Severity Reaction Status Date / Time fluconazole [From Diflucan] Allergy Intermediate Swelling Verified 08/17/22 16:23 Review of Systems Review of Systems: Constitutional: No Fever, No Chills ENT/Mouth: No Ear Pain, No Nasal Congestion, No sore throat, No Rhinorrhea, No Swallowing Difficulty Cardiovascular: No Chest Pain, No SOB Respiratory: No Cough, No Sputum, No Wheezing Gastrointestinal: No Nausea, No Vomiting, No Diarrhea, No Constipation, No Abdominal pain Genitourinary: No Dysuria, No Urinary Frequency, No Hematuria, +Urinary Incontinence, No retention, No Urgency, No Flank Pain Musculoskeletal: + joint pain, No Myalgias, No Joint Swelling Skin: No Skin Lesions, No rash Neuro: + Weakness, + Numbness, + Paresthesias Yes all other systems are reviewed and are negative Constitutional: Constitutional: Reports as per [facility] Past Medical History Attestation statement: The following information was validated with the patient. 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 Physical Exam ED Vital Signs: Vital Signs - 24 hr 10/01/22 09:30 10/01/22 14:34 Temperature 97.5 F 98.2 F Pulse Rate 65 54 Respiratory Rate 14 18 Blood Pressure 99/51 L 94/54 L Pulse Oximetry 100 100 Oxygen Delivery Method Room Air Room Air BMI result Body Mass Index 23.3 Const General: cooperative, healthy appearing and no acute distress Orientation/consciousness: patient oriented x3 Limitations: no limitations HENMT Head: Yes normal to inspection and Yes atraumatic Ears: hearing grossly normal bilaterally General nose exam: Normal external nose present Face and sinus: Yes normal facial exam Eyes General: appearance normal, both eyes and all related structures EOM: EOMs intact bilaterally Neck Neck: Yes normal visual inspection and Yes no meningeal signs Resp Effort & Inspection: normal respiratory effort and no respiratory distress Cardio Rate: regular rate Heart sounds: S1 normal heart sound present and S2 normal heart sound present GI Other: Perianal sensation intact to light touch (decreased per pt) Inspection: Yes normal to inspection Palpation (GI): Soft to palpation, nontender, no guarding and not rigid Rectal Exam - Female: abnormal sphincter tone and decreased sphincter tone (mild) General: Yes no CVA tenderness Back/Spine/Pelvis Other: No midline thoracic/lumbar spinous tenderness/step-off or deformity. Back: no CVA tenderness Thoracic/Lumbar Spine: thoracic and lumbar spine normal to inspection Skin Rashes: no rashes Wounds: no wounds Neuro General: patient oriented x3, gait normal, tone normal, moves all extremities, no meningeal signs and no focal motor deficits Gait exam (Neuro): Normal gait present Motor exam (neuro): 5/5 motor strength present throughout Deep tendon reflexes (DTR's): Right patellar reflex intensity grade: 2+ and Left patellar reflex intensity grade: 2+ Extrem General: Yes normal to inspection Course Course Course Narrative: MR lumbar spine wo con IMPRESSION: No abnormality identified. No disc herniation, spinal canal stenosis, or nerve root compression. > Results discussed with patient including worrisome signs and symptoms and strict return precautions, and when to return to the emergency department. They verbalized understanding and feel safe for discharge at this time. Medical Decision Making Medical Decision Making MDM Narrative: 22-year-old female with no significant past medical history presenting to the ED complaining of acute low back pain radiating down bilateral lower extremities with associated numbness and tingling x 1 week s/p picking a child. On exam BP soft, NAD, nontoxic appearing, no midline spinous tenderness or reproducible back pain. Strength intact throughout. Mild decrease rectal tone and reported perianal sensation. Ambulating with steady gait. Concern for cauda equina vs cord compression vs MSK pain/strain or sciatica. Low suspicion for epidural abscess, demyelinating process or [place]. Low suspicion for infection Plan: MRI Please refer to course for remaining clinical decision making, interpretation of labs/imaging results, and discussions with consultants and/or family members. Differential Diagnosis Differential Diagnoses: The differential diagnosis associated with the presentation includes as above Admission/Observation Consideration of admission/observation: Escalation of care including admission/observation considered Radiology Impression Discussion of test interpretation with radiology: I have reviewed the radiologist's reading. External Record Review External record reviewed: Office record and Outside ED record Discharge Plan Discharge Clinical Impression: Low back pain, Leg paresthesia Patient Disposition: Home, Self-Care Instructions: Acute Low Back Pain (ED), Paresthesia (ED) Additional Instructions: Continue taking previously prescribed medications Lidoderm patches are numbing patches, apply to painful area In addition take Tylenol at home PLEASE HAVE CLOSE FOLLOW-UP WITH HER DOCTOR If symptoms persist or worsen, pain becomes unbearable, you developed urinary retention or incontinence, or weakness return to the ED Prescriptions: No Action tramadol 50 mg tablet 50 mg PO Q8H PRN (Reason: pain) Qty: 14 0RF ibuprofen 600 mg tablet 600 mg PO TID PRN (Reason: pain) Qty: 30 0RF cyclobenzaprine 5 mg tablet 5 mg PO TID PRN (Reason: muscle spasm) 7 Days Qty: 21 0RF Referrals: [facility] [[facility]] [facility]] Physician,None [Primary Care Provider] - Interventions: ED Discharge Assessment Last Done: 10/01/22 14:44 Discharge Date/Time: 10/01/22 14:44
[2022-10-01 14:34] VITALS: BP 94/54; PULSE 54; RESP 18; TEMP 36.8; O2SAT 100
== END 2022-10-01 14:44 | disposition home or self-care (01) ==
PROVIDERS: Emergency Provider Emergency Medicine
DX: M54.50 Low back pain, unspecified (principal); R20.2 Paresthesia of skin
CPT/HCPCS: 72148; 99284; 99285